=== PATIENT | female | born 1975 | race African-American/Black ===

== ENCOUNTER 2017-08-24 06:11 | Emergency (ER) | payer MEDICAID ==
[~2017-08-24] VITALS: Ht 167.6 cm; Wt 80.0 kg
[~2017-08-24 06:11] MED LIST: BENA20TA3 PO; BENAZEPRIL PO; METF500T6 PO; METFORMIN PO; METO-293 PO; ONDA8TAB6 PO; SIMVASTATIN PO
[2017-08-24] MEDS ORDERED: MORPHINE SULFATE 4 MG/ML CPJ (NOT FOR IM USE) IV STA (06:44)
[2017-08-24] MEDS ORDERED: SODIUM CHLORIDE 0.9% 1,000 ML IV ONE (06:44)
[2017-08-24] MEDS ORDERED: METOCLOPRAMIDE HCL 10MG/2ML VIAL IV ONE (06:45)
[2017-08-24 07:20] LABS: BASOPHILS % 0.7 % (0.0-2.0); EOSINOPHILS % 0.1 % (0.0-5.0); HEMOGLOBIN. 15.3 g/dL (12.0-16.0); LYMPHOCYTES % 14.8 % (20.0-50.0); MEAN CORPUSCULAR HEMOGLOBIN 30.6 pg (28.0-32.0); MEAN CORPUSCULAR VOLUME 88.3 fL (81.0-99.0); MONOCYTES % 5.4 % (2.0-8.0); PLATELET 238 x1000/uL (130-400); RED BLOOD CELL COUNT 4.99 mill/uL (4.2-5.4); RED CELL DISTRIBUTION WIDTH 12.4 % (11.6-14.6)
[2017-08-24 07:30] LABS: INR 1.1; PROTHROMBIN TIME 11.8 sec (9.4-11.6)
[2017-08-24 07:35] LABS: CHLORIDE 100 mEq/L (98-107)
[2017-08-24 07:45] LABS: HCG SCREEN NEGATIVE
[2017-08-24] MEDS ORDERED: ONDANSETRON HCL 4MG/2ML VIAL IV ONE (08:00)
[2017-08-24 09:34] LABS: CLARITY URINE CLEAR (CLEAR); COLOR URINE YELLOW (YELLOW); KETONES URINE 2+ (NEGATIVE); LEUKOCYTE ESTERASE URINE NEGATIVE (NEGATIVE); NITRITE URINE NEGATIVE (NEGATIVE); OCCULT BLOOD URINE NEGATIVE (NEGATIVE); PROTEIN URINE NEGATIVE (NEGATIVE); SPECIFIC GRAVITY URINE 1.008 (1.005-1.030); UROBILINOGEN URINE 0.2 E.U./dL (0.2-1.0)
[2017-08-24 10:23] VITALS: BP 128/84
== END 2017-08-24 10:37 | disposition home or self-care (01) ==
LOC: ER 08:53
DX: E11.43 Type 2 diabetes mellitus with diabetic autonomic (poly)neuropathy (principal); K31.84 Gastroparesis; I10 Essential (primary) hypertension; Z79.84 Long term (current) use of oral hypoglycemic drugs
CPT/HCPCS: 36415; 80053; 81003; 83690; 84703; 85025; 85610; 96361; 96374; 96375; 99285; C1893; J2270; J2405; J2765; J7030; Z7610

== ENCOUNTER 2017-10-11 07:34 | Emergency (ER) | payer MEDICAID ==
[~2017-10-11] VITALS: Ht 167.6 cm; Wt 79.0 kg
[~2017-10-11 07:34] MED LIST changes: +BENA20TA10 PO; -BENA20TA3 PO
[2017-10-11] MEDS ORDERED: SODIUM CHLORIDE 0.9% 1,000 ML IV ONE (09:02)
[2017-10-11] MEDS ORDERED: KETOROLAC 30MG/ML VIAL IV STA (09:02)
[2017-10-11] MEDS ORDERED: ONDANSETRON HCL 4MG/2ML VIAL IV STA (09:02)
[2017-10-11 09:16] LABS: CLARITY URINE CLEAR (CLEAR); COLOR URINE YELLOW (YELLOW); KETONES URINE 2+ (NEGATIVE); LEUKOCYTE ESTERASE URINE NEGATIVE (NEGATIVE); NITRITE URINE NEGATIVE (NEGATIVE); OCCULT BLOOD URINE TRACE (NEGATIVE); PH URINE 5.5 (4.5-8.0); PROTEIN URINE NEGATIVE (NEGATIVE); SPECIFIC GRAVITY URINE 1.015 (1.005-1.030); UROBILINOGEN URINE 0.2 E.U./dL (0.2-1.0)
[2017-10-11 10:11] LABS: CHLORIDE 104 mEq/L (98-107)
[2017-10-11 11:37] LABS: BASOPHILS % 0.6 % (0.0-2.0); HEMATOCRIT. 40.5 % (36.0-48.0); HEMOGLOBIN. 13.7 g/dL (12.0-16.0); LYMPHOCYTES % 9.3 % (20.0-50.0); MEAN CORPUSCULAR HEMOGLOBIN 30.3 pg (28.0-32.0); MEAN CORPUSCULAR VOLUME 89.3 fL (81.0-99.0); MEAN PLATELET VOLUME 9.6 fl (7.4-10.4); MONOCYTES % 3.9 % (2.0-8.0); NEUTROPHILS % 86.2 % (40.0-76.0); PLATELET 206 x1000/uL (130-400); RED BLOOD CELL COUNT 4.54 mill/uL (4.2-5.4); RED CELL DISTRIBUTION WIDTH 12.6 % (11.6-14.6)
[2017-10-11 11:44] LABS: INR 1.1; PROTHROMBIN TIME 10.7 sec (9.1-11.1)
[2017-10-11 12:10] VITALS: BP 133/69
== END 2017-10-11 13:05 | disposition home or self-care (01) ==
LOC: ER 07:34
DX: R10.12 Left upper quadrant pain (principal); R11.2 Nausea with vomiting, unspecified; I10 Essential (primary) hypertension; E11.9 Type 2 diabetes mellitus without complications; Z90.710 Acquired absence of both cervix and uterus; Z98.890 Other specified postprocedural states
CPT/HCPCS: 36415; 74176; 80053; 81003; 81025; 82962; 83690; 85025; 85610; 96361; 96374; 96375; 99285; J1885; J2405; J7030

== ENCOUNTER 2017-11-29 07:37 | Inpatient (IN) | payer MEDICAID, OTHER ==
[~2017-11-29] VITALS: Ht 167.6 cm; Wt 78.5 kg
[~2017-11-29 07:37] MED LIST changes: +METF-414 PO; -METF500T6 PO
[2017-11-29] MEDS ORDERED: PANTOPRAZOLE SODIUM 40 MG/VIAL IV STA (08:15)
[2017-11-29] MEDS ORDERED: SODIUM CHLORIDE 0.9% 1,000 ML IV ONE (08:15)
[2017-11-29] MEDS ORDERED: ONDANSETRON HCL 4MG/2ML INJ IV STA (08:15)
[2017-11-29] MEDS ORDERED: ONDANSETRON 4MG ODT PO ONE (09:00)
[2017-11-29 09:59] LABS: BASOPHILS % 0.7 % (0.0-2.0); EOSINOPHILS % 0.3 % (0.0-5.0); HEMATOCRIT. 44.4 % (36.0-48.0); HEMOGLOBIN. 14.8 g/dL (12.0-16.0); LYMPHOCYTES % 12.2 % (20.0-50.0); MEAN CORPUSCULAR HEMOGLOBIN 30.4 pg (28.0-32.0); MEAN CORPUSCULAR VOLUME 91.2 fL (81.0-99.0); MEAN PLATELET VOLUME 10.4 fl (7.4-10.4); NEUTROPHILS % 82.8 % (40.0-76.0); PLATELET 190 x1000/uL (130-400); RED BLOOD CELL COUNT 4.87 mill/uL (4.2-5.4)
[2017-11-29 10:07] LABS: CHLORIDE 109 mEq/L (98-107)
[2017-11-29 10:12] LABS: ETHANOL BLOOD < 10 mg/dL
[2017-11-29 11:05] LABS: PLATELET ESTIMATE NORMAL
[2017-11-29] MEDS ORDERED: MORPHINE SULFATE 4 MG/ML CPJ (NOT FOR IM USE) IV ONE (11:15)
[2017-11-29 11:39] LABS: CLARITY URINE CLEAR (CLEAR); COLOR URINE YELLOW (YELLOW); KETONES URINE 1+ (NEGATIVE); LEUKOCYTE ESTERASE URINE NEGATIVE (NEGATIVE); NITRITE URINE NEGATIVE (NEGATIVE); OCCULT BLOOD URINE NEGATIVE (NEGATIVE); PH URINE 7.5 (4.5-8.0); PROTEIN URINE NEGATIVE (NEGATIVE); SPECIFIC GRAVITY URINE 1.022 (1.005-1.030); UROBILINOGEN URINE 0.2 E.U./dL (0.2-1.0)
[2017-11-29 12:12] LABS: *AMPHETAMINES SCREEN URINE NEGATIVE (NEGATIVE); *BARBITURATES SCREEN URINE NEGATIVE (NEGATIVE); *BENZODIAZEPINES SCREEN URINE NEGATIVE (NEGATIVE); *COCAINE SCREEN URINE NEGATIVE (NEGATIVE); METHADONE URINE SCREEN NEGATIVE (NEGATIVE); OPIATES URINE SCREEN NEGATIVE (NEGATIVE); PHENCYCLIDINE URINE SCREEN NEGATIVE (NEGATIVE)
[2017-11-29 12:14] LABS: CANNABINOID URINE SCREEN PRESUMTIVE POSITIVE (NEGATIVE)
[2017-11-29] MEDS ORDERED: METOCLOPRAMIDE HCL 10MG/2ML VIAL IV ONE (13:15)
[2017-11-29 16:00] VITALS: BP 139/77
[2017-11-29] MEDS ORDERED: NA PHOS,M-B/NA PHOS,DI-BA ENEMA 118ML PR PRN (17:45)
[2017-11-29] MEDS ORDERED: MAGNESIUM/ALUMINUM HYDROXIDE/SIMETHICONE 30ML UDC PO PRN (17:45)
[2017-11-29] MEDS ORDERED: ACETAMINOPHEN 650MG SUPP PR PRN (17:45)
[2017-11-29] MEDS ORDERED: HYDROCODONE/ACETAMINOPHEN 10/325MG TABLET PO PRN (17:45)
[2017-11-29] MEDS ORDERED: ACETAMINOPHEN 650MG/20.3ML UDC GT PRN (17:45)
[2017-11-29] MEDS ORDERED: ACETAMINOPHEN 325MG TABLET PO PRN (17:45)
[2017-11-29] MEDS ORDERED: DOCUSATE SODIUM 100MG CAPSULE PO PRN (17:45)
[2017-11-29] MEDS ORDERED: HYDROCODONE/ACETAMINOPHEN 5/325MG TABLET PO PRN (17:45)
[2017-11-29] MEDS ORDERED: ONDANSETRON HCL 4MG/2ML INJ IV PRN (17:45)
[2017-11-29] MEDS ORDERED: GUAIFENESIN 200MG/10ML SUGAR FREE UDC PO PRN (17:45)
[2017-11-29] MEDS ORDERED: CLONIDINE 0.1MG TABLET PO PRN (17:45)
[2017-11-29] MEDS: METOCLOPRAMIDE HCL 10MG/2ML VIAL IV SCH ×2 (17:55→23:37)
[2017-11-29] MEDS: FAMOTIDINE 20MG/2ML VIAL IV SCH (17:56)
[2017-11-29] MEDS: ENOXAPARIN 40MG/0.4ML SYR SUBCUT SCH (17:56)
[2017-11-29] MEDS: MORPHINE SULFATE 4 MG/ML CPJ (NOT FOR IM USE) IV PRN ×2 (18:00→23:37)
[2017-11-29 20:00] VITALS: BP 150/74
[2017-11-30] VITALS: BP 136/89
[2017-11-30] MEDS: DEXT 5%/0.45% NACL 1000ML 1,000 ML IV SCH ×2 (00:57→14:00)
[2017-11-30 04:00] VITALS: BP 140/77
[2017-11-30] MEDS: MORPHINE SULFATE 4 MG/ML CPJ (NOT FOR IM USE) IV PRN ×2 (05:26→10:03)
[2017-11-30] MEDS: METOCLOPRAMIDE HCL 10MG/2ML VIAL IV SCH ×2 (05:26→12:08)
[2017-11-30 07:34] LABS: BASOPHILS % 0.6 % (0.0-2.0); HEMATOCRIT. 37.6 % (36.0-48.0); HEMOGLOBIN. 12.5 g/dL (12.0-16.0); LYMPHOCYTES % 11.4 % (20.0-50.0); MEAN CORPUSCULAR VOLUME 90.3 fL (81.0-99.0); MEAN PLATELET VOLUME 9.8 fl (7.4-10.4); MONOCYTES % 7.6 % (2.0-8.0); NEUTROPHILS % 80.4 % (40.0-76.0); PLATELET 189 x1000/uL (130-400); RED BLOOD CELL COUNT 4.16 mill/uL (4.2-5.4); RED CELL DISTRIBUTION WIDTH 12.6 % (11.6-14.6)
[2017-11-30 08:00] VITALS: BP 122/78
[2017-11-30 08:15] LABS: CHLORIDE 105 mEq/L (98-107)
[2017-11-30 08:24] LABS: HDL CHOLESTEROL 41 mg/dL (40-59); LDL CHOLESTEROL 103 mg/dL (5-100)
[2017-11-30] MEDS: ENOXAPARIN 40MG/0.4ML SYR SUBCUT SCH (08:52)
[2017-11-30] MEDS: FAMOTIDINE 20MG/2ML VIAL IV SCH (08:52)
[2017-11-30] MEDS ORDERED: DEXTROSE 50% WATER 50ML SYRINGE IV PRN (10:30)
[2017-11-30 12:00] VITALS: BP 132/57
[2017-11-30] MEDS ORDERED: BLOOD SUGAR DIAGNOSTIC STRIP TEST SCH (12:20)
[2017-11-30] MEDS ORDERED: INSULIN LISPRO 100 UNITS/ML SUBCUT SCH (12:50)
[2017-11-30 14:12] VITALS: BP 132/57
[2017-11-30 16:00] VITALS: BP 124/65
== END 2017-11-30 16:36 | disposition home or self-care (01) | DRG 48 ==
LOC: ER 07:37 → 6EST 14:22 → ENRESERV 14:32
PROVIDERS: ADMIT Family Medicine; ATTEND Family Medicine
DX: E11.43 Type 2 diabetes mellitus with diabetic autonomic (poly)neuropathy (principal); K31.84 Gastroparesis; E78.5 Hyperlipidemia, unspecified; E86.0 Dehydration; F12.90 Cannabis use, unspecified, uncomplicated; I10 Essential (primary) hypertension; Z83.3 Family history of diabetes mellitus; Z90.710 Acquired absence of both cervix and uterus; Z98.891 History of uterine scar from previous surgery; Z79.899 Other long term (current) drug therapy
CPT/HCPCS: 36415; 80061; 80305; 82962; 96361; 96374; 96375; 99285; C1893; C9113; G0482; J1650; J2270; J2405; J2765; J3490; J7030; Q0162

== ENCOUNTER 2017-12-26 09:08 | Emergency (ER) | payer OTHER ==
[~2017-12-26] VITALS: Ht 167.6 cm; Wt 79.0 kg
[2017-12-26] MEDS ORDERED: SODIUM CHLORIDE 0.9% 1,000 ML IV ONE (10:37)
[2017-12-26] MEDS ORDERED: ONDANSETRON HCL 4MG/2ML INJ IV STA (10:37)
[2017-12-26] MEDS ORDERED: KETOROLAC 30MG/ML VIAL IV STA (10:37)
[2017-12-26 11:18] LABS: BASOPHILS % 0.6 % (0.0-2.0); EOSINOPHILS % 0.2 % (0.0-5.0); HEMATOCRIT. 43.9 % (36.0-48.0); HEMOGLOBIN. 14.7 g/dL (12.0-16.0); LYMPHOCYTES % 15.1 % (20.0-50.0); MEAN CORPUSCULAR HEMOGLOBIN 30.4 pg (28.0-32.0); MEAN CORPUSCULAR VOLUME 91.1 fL (81.0-99.0); MEAN PLATELET VOLUME 9.6 fl (7.4-10.4); MONOCYTES % 3.8 % (2.0-8.0); NEUTROPHILS % 80.3 % (40.0-76.0); PLATELET 228 x1000/uL (130-400); RED BLOOD CELL COUNT 4.81 mill/uL (4.2-5.4); RED CELL DISTRIBUTION WIDTH 12.8 % (11.6-14.6)
[2017-12-26 11:28] LABS: CHLORIDE 105 mEq/L (98-107)
[2017-12-26 11:47] LABS: CLARITY URINE CLEAR (CLEAR); COLOR URINE YELLOW (YELLOW); KETONES URINE NEGATIVE (NEGATIVE); LEUKOCYTE ESTERASE URINE NEGATIVE (NEGATIVE); NITRITE URINE NEGATIVE (NEGATIVE); OCCULT BLOOD URINE NEGATIVE (NEGATIVE); PROTEIN URINE NEGATIVE (NEGATIVE); SPECIFIC GRAVITY URINE 1.019 (1.005-1.030); UROBILINOGEN URINE 0.2 E.U./dL (0.2-1.0)
[2017-12-26] MEDS ORDERED: MORPHINE SULFATE 4 MG/ML CPJ (NOT FOR IM USE) IV ONE (12:00)
[2017-12-26 13:10] VITALS: BP 124/76
== END 2017-12-26 13:12 | disposition home or self-care (01) ==
LOC: ER 09:42
DX: R10.33 Periumbilical pain (principal); R11.2 Nausea with vomiting, unspecified; I10 Essential (primary) hypertension; E11.9 Type 2 diabetes mellitus without complications; F12.10 Cannabis abuse, uncomplicated; Z98.890 Other specified postprocedural states; Z90.710 Acquired absence of both cervix and uterus; Z79.899 Other long term (current) drug therapy
CPT/HCPCS: 36415; 74176; 80053; 81003; 81025; 82962; 83690; 85025; 85610; 96361; 96374; 96375; 99285; J1885; J2270; J2405; J7030

== ENCOUNTER 2018-02-20 07:11 | Inpatient (IN) | payer OTHER ==
[~2018-02-20] VITALS: Ht 165.1 cm; Wt 81.6 kg
[2018-02-20] MEDS ORDERED: SODIUM CHLORIDE 0.9% 1,000 ML IV ONE (07:46)
[2018-02-20] MEDS ORDERED: METOCLOPRAMIDE HCL 10MG/2ML VIAL IV STA (07:46)
[2018-02-20] MEDS ORDERED: MORPHINE SULFATE 4 MG/ML CPJ (NOT FOR IM USE) IV ONE (08:00)
[2018-02-20 09:13] LABS: BASOPHILS % 0.4 % (0.0-2.0); EOSINOPHILS % 0.3 % (0.0-5.0); HEMATOCRIT. 41.6 % (36.0-48.0); HEMOGLOBIN. 13.9 g/dL (12.0-16.0); LYMPHOCYTES % 10.3 % (20.0-50.0); MEAN CORPUSCULAR HEMOGLOBIN 30.6 pg (28.0-32.0); MEAN CORPUSCULAR VOLUME 91.5 fL (81.0-99.0); MONOCYTES % 2.2 % (2.0-8.0); NEUTROPHILS % 86.8 % (40.0-76.0); RED BLOOD CELL COUNT 4.55 mill/uL (4.2-5.4); RED CELL DISTRIBUTION WIDTH 13.2 % (11.6-14.6)
[2018-02-20 09:16] LABS: CHLORIDE 109 mEq/L (98-107)
[2018-02-20 09:25] LABS: BETA HYDROXYBUTYRATE 0.1 mMol/L (0.0-0.3)
[2018-02-20] MEDS ORDERED: MORPHINE SULFATE 10 MG/ML CPJ IV NR (09:30)
[2018-02-20] MEDS ORDERED: ONDANSETRON HCL 4MG/2ML INJ IV ONE ×2 (09:45→11:15)
[2018-02-20 10:07] LABS: PLATELET 159 x1000/uL (130-400)
[2018-02-20 10:55] LABS: CLARITY URINE CLOUDY (CLEAR); COLOR URINE YELLOW (YELLOW); KETONES URINE NEGATIVE (NEGATIVE); LEUKOCYTE ESTERASE URINE NEGATIVE (NEGATIVE); NITRITE URINE NEGATIVE (NEGATIVE); OCCULT BLOOD URINE TRACE (NEGATIVE); PROTEIN URINE NEGATIVE (NEGATIVE); SPECIFIC GRAVITY URINE 1.023 (1.005-1.030); UROBILINOGEN URINE 0.2 E.U./dL (0.2-1.0)
[2018-02-20 12:50] LABS: *AMPHETAMINES SCREEN URINE NEGATIVE (NEGATIVE); *BARBITURATES SCREEN URINE NEGATIVE (NEGATIVE); *BENZODIAZEPINES SCREEN URINE NEGATIVE (NEGATIVE); *COCAINE SCREEN URINE NEGATIVE (NEGATIVE); METHADONE URINE SCREEN NEGATIVE (NEGATIVE); OPIATES URINE SCREEN NEGATIVE (NEGATIVE); PHENCYCLIDINE URINE SCREEN NEGATIVE (NEGATIVE)
[2018-02-20 12:55] LABS: CANNABINOID URINE SCREEN PRESUMTIVE POSITIVE (NEGATIVE)
[2018-02-20] MEDS ORDERED: KETOROLAC 15MG/ML VIAL IV ONE (13:45)
[2018-02-20 17:37] VITALS: BP 139/89
[2018-02-20] MEDS ORDERED: SODIUM CHLORIDE 0.9% 1,000 ML IV SCH (19:30)
[2018-02-20] MEDS ORDERED: DEXTROSE 50% WATER 50ML SYRINGE IV PRN (19:30)
[2018-02-20] MEDS ORDERED: METOCLOPRAMIDE HCL 10MG/2ML VIAL IV PRN (19:30)
[2018-02-20] MEDS ORDERED: ZOLPIDEM TARTRATE 5MG TABLET PO PRN (19:45)
[2018-02-20] MEDS ORDERED: ACETAMINOPHEN 325MG TABLET PO PRN (19:45)
[2018-02-20 20:00] VITALS: BP 147/88
[2018-02-20] MEDS: INSULIN LISPRO 100 UNITS/ML SUBCUT SCH (20:34)
[2018-02-20] MEDS: BLOOD SUGAR DIAGNOSTIC STRIP TEST SCH (21:00)
[2018-02-21] VITALS: BP 149/81
[2018-02-21] MEDS ORDERED: KETOROLAC 10MG TABLET PO ONE (00:30)
[2018-02-21] MEDS ORDERED: ONDANSETRON HCL 4MG/2ML INJ IV PRN (00:30)
[2018-02-21] MEDS ORDERED: MAGNESIUM/ALUMINUM HYDROXIDE/SIMETHICONE 30ML UDC PO PRN (00:30)
[2018-02-21 04:00] VITALS: BP 124/78
[2018-02-21] MEDS: BLOOD SUGAR DIAGNOSTIC STRIP TEST SCH (07:20)
[2018-02-21] MEDS: INSULIN LISPRO 100 UNITS/ML SUBCUT SCH (07:50)
[2018-02-21] MEDS ORDERED: METFORMIN HCL 500MG TABLET PO SCH (07:50)
[2018-02-21 07:54] LABS: BASOPHILS % 0.3 % (0.0-2.0); HEMATOCRIT. 40.2 % (36.0-48.0); HEMOGLOBIN. 13.5 g/dL (12.0-16.0); LYMPHOCYTES % 7.6 % (20.0-50.0); MEAN CORPUSCULAR HEMOGLOBIN 30.3 pg (28.0-32.0); MEAN CORPUSCULAR VOLUME 90.2 fL (81.0-99.0); MEAN PLATELET VOLUME 9.5 fl (7.4-10.4); MONOCYTES % 4.2 % (2.0-8.0); NEUTROPHILS % 87.9 % (40.0-76.0); PLATELET 226 x1000/uL (130-400); RED BLOOD CELL COUNT 4.46 mill/uL (4.2-5.4); RED CELL DISTRIBUTION WIDTH 13.1 % (11.6-14.6)
[2018-02-21 08:00] VITALS: BP 126/69
[2018-02-21 08:24] LABS: CHLORIDE 100 mEq/L (98-107)
[2018-02-21] MEDS ORDERED: FAMOTIDINE 20MG TABLET PO SCH (09:00)
[2018-02-21] MEDS ORDERED: KETOROLAC 30MG/ML VIAL IV PRN (09:15)
[2018-02-21] MEDS ORDERED: METRONIDAZOLE 500 MG PREMIX 100 ML IV SCH (10:30)
[2018-02-21] MEDS ORDERED: LEVOFLOXACIN 500MG PREMIX 100 ML IV SCH (11:00)
[2018-02-21] MEDS ORDERED: METOCLOPRAMIDE HCL 10MG/2ML VIAL IV SCH (11:30)
[2018-02-21 12:00] VITALS: BP 117/84
== END 2018-02-21 13:40 | disposition home or self-care (01) | DRG 48 ==
LOC: ER 07:48 → ENRESERV 14:23 → EDBEDREQ 15:30 → 6EST 16:15
PROVIDERS: ADMIT Family Medicine Adult Medicine; ATTEND Family Medicine Adult Medicine
DX: E11.43 Type 2 diabetes mellitus with diabetic autonomic (poly)neuropathy (principal); K31.84 Gastroparesis; D72.829 Elevated white blood cell count, unspecified; T40.7X5A Adverse effect of cannabis (derivatives), initial encounter; F12.90 Cannabis use, unspecified, uncomplicated; I10 Essential (primary) hypertension; Z83.3 Family history of diabetes mellitus; Z90.710 Acquired absence of both cervix and uterus; Z98.891 History of uterine scar from previous surgery; Y92.89 Other specified places as the place of occurrence of the external cause; Z79.899 Other long term (current) drug therapy
CPT/HCPCS: 36415; 74176; 76705; 80048; 80305; 82010; 82962; 83036; 96374; 99285; J1815; J1885; J1956; J2270; J2405; J2765; J3490; J7030

== ENCOUNTER 2018-08-22 07:31 | Inpatient (IN) | payer MEDICAID, OTHER ==
[~2018-08-22] VITALS: Ht 167.6 cm; Wt 79.4 kg
[2018-08-22] MEDS ORDERED: MORPHINE SULFATE 4 MG/ML CPJ (NOT FOR IM USE) IV STA ×2 (08:58→15:40)
[2018-08-22] MEDS ORDERED: ONDANSETRON HCL 4MG/2ML INJ IV STA (08:58)
[2018-08-22] MEDS ORDERED: SODIUM CHLORIDE 0.9% 1,000 ML IV ONE (08:58)
[2018-08-22 09:29] LABS: BASOPHILS % 0.9 % (0.0-2.0); EOSINOPHILS % 0.1 % (0.0-5.0); HEMATOCRIT. 42.4 % (36.0-48.0); HEMOGLOBIN. 14.3 g/dL (12.0-16.0); LYMPHOCYTES % 11.1 % (20.0-50.0); MEAN CORPUSCULAR HEMOGLOBIN 30.8 pg (28.0-32.0); MEAN CORPUSCULAR VOLUME 91.1 fL (81.0-99.0); MEAN PLATELET VOLUME 9.5 fl (7.4-10.4); MONOCYTES % 2.6 % (2.0-8.0); NEUTROPHILS % 85.3 % (40.0-76.0); PLATELET 222 x1000/uL (130-400); RED BLOOD CELL COUNT 4.65 mill/uL (4.2-5.4); RED CELL DISTRIBUTION WIDTH 12.9 % (11.6-14.6)
[2018-08-22 09:40] LABS: HCG SCREEN NEGATIVE
[2018-08-22 09:42] LABS: CHLORIDE 110 mEq/L (98-107)
[2018-08-22 10:40] LABS: CLARITY URINE TURBID (CLEAR); COLOR URINE YELLOW (YELLOW); KETONES URINE TRACE (NEGATIVE); LEUKOCYTE ESTERASE URINE NEGATIVE (NEGATIVE); NITRITE URINE NEGATIVE (NEGATIVE); OCCULT BLOOD URINE NEGATIVE (NEGATIVE); PROTEIN URINE NEGATIVE (NEGATIVE); SPECIFIC GRAVITY URINE 1.027 (1.005-1.030); UROBILINOGEN URINE 0.2 E.U./dL (0.2-1.0)
[2018-08-22] MEDS ORDERED: METOCLOPRAMIDE HCL 10MG/2ML VIAL IV ONE (11:15)
[2018-08-22] MEDS ORDERED: ONDANSETRON HCL 4MG/2ML INJ IV ONE (15:00)
[2018-08-22] MEDS ORDERED: MAGNESIUM/ALUMINUM HYDROXIDE/SIMETHICONE 30ML UDC PO PRN (18:30)
[2018-08-22] MEDS ORDERED: CLONIDINE 0.1MG TABLET PO PRN (18:30)
[2018-08-22] MEDS ORDERED: DIPHENHYDRAMINE 50MG/ML VIAL IV PRN (18:30)
[2018-08-22] MEDS ORDERED: IPRATROPIUM/ALBUTEROL 0.5-3(2.5)MG/3ML NEB INH PRN (18:30)
[2018-08-22] MEDS ORDERED: HYDROCODONE/ACETAMINOPHEN 5/325MG TABLET PO PRN (18:30)
[2018-08-22] MEDS ORDERED: GUAIFENESIN 200MG/10ML SUGAR FREE UDC PO PRN (18:30)
[2018-08-22] MEDS ORDERED: ACETAMINOPHEN 325MG TABLET PO PRN (18:30)
[2018-08-22] MEDS ORDERED: DOCUSATE SODIUM 100MG CAPSULE PO PRN (18:30)
[2018-08-22] MEDS ORDERED: NA PHOS,M-B/NA PHOS,DI-BA ENEMA 118ML PR PRN (18:30)
[2018-08-22] MEDS ORDERED: ONDANSETRON HCL 4MG/2ML INJ IV PRN (18:30)
[2018-08-22] MEDS ORDERED: ACETAMINOPHEN 650MG SUPP PR PRN (18:30)
[2018-08-22] MEDS ORDERED: ACETAMINOPHEN 650MG/20.3ML UDC GT PRN (18:30)
[2018-08-22 18:51] VITALS: BP 154/81
[2018-08-22] MEDS ORDERED: ENOXAPARIN 40MG/0.4ML SYR SUBCUT SCH (19:00)
[2018-08-22 20:00] VITALS: BP 147/70
[2018-08-22] MEDS: FAMOTIDINE 20MG/2ML VIAL IV SCH (20:20)
[2018-08-22] MEDS: MORPHINE SULFATE 2 MG/ML CPJ (NOT FOR IM USE) IV PRN (20:31)
[2018-08-22] MEDS: SODIUM CHLORIDE 0.9% INJ 3ML FLUSH IVF SCH (22:43)
[2018-08-23] VITALS: BP 118/69
[2018-08-23] MEDS: METOCLOPRAMIDE HCL 10MG/2ML VIAL IV SCH ×4 (00:07→16:58)
[2018-08-23] MEDS: DEXT 5%/0.45% NACL 1000ML 1,000 ML IV SCH ×3 (00:08→08:01)
[2018-08-23] MEDS: MORPHINE SULFATE 2 MG/ML CPJ (NOT FOR IM USE) IV PRN (00:50)
[2018-08-23 04:00] VITALS: BP 110/47
[2018-08-23] MEDS ORDERED: DEXTROSE 50% WATER 50ML SYRINGE IV PRN (04:45)
[2018-08-23] MEDS: SODIUM CHLORIDE 0.9% INJ 3ML FLUSH IVF SCH ×2 (06:16→12:54)
[2018-08-23] MEDS: BLOOD SUGAR DIAGNOSTIC STRIP TEST SCH ×3 (06:48→17:55)
[2018-08-23 07:19] LABS: BASOPHILS % 0.9 % (0.0-2.0); EOSINOPHILS % 0.1 % (0.0-5.0); HEMATOCRIT. 40.3 % (36.0-48.0); HEMOGLOBIN. 13.6 g/dL (12.0-16.0); LYMPHOCYTES % 13.9 % (20.0-50.0); MEAN CORPUSCULAR HEMOGLOBIN 30.7 pg (28.0-32.0); MEAN CORPUSCULAR VOLUME 90.9 fL (81.0-99.0); MEAN PLATELET VOLUME 9.2 fl (7.4-10.4); MONOCYTES % 7.8 % (2.0-8.0); NEUTROPHILS % 77.3 % (40.0-76.0); PLATELET 197 x1000/uL (130-400); RED BLOOD CELL COUNT 4.43 mill/uL (4.2-5.4); RED CELL DISTRIBUTION WIDTH 12.7 % (11.6-14.6)
[2018-08-23] MEDS: INSULIN LISPRO 100 UNITS/ML SUBCUT SCH ×3 (07:50→17:50)
[2018-08-23] MEDS: FAMOTIDINE 20MG/2ML VIAL IV SCH ×2 (07:59→16:58)
[2018-08-23 08:00] VITALS: BP 120/70
[2018-08-23 10:29] LABS: CHLORIDE 108 mEq/L (98-107)
[2018-08-23 10:31] LABS: LDL CHOLESTEROL 128 mg/dL (5-100)
[2018-08-23 10:33] LABS: HDL CHOLESTEROL 44 mg/dL (40-59)
[2018-08-23 12:00] VITALS: BP 139/77
[2018-08-23 16:00] VITALS: BP 139/83
[2018-08-23] MEDS ORDERED: LACTULOSE 20G/30ML UDC PO NR (16:45)
[2018-08-23 17:29] VITALS: BP 139/83
== END 2018-08-23 18:15 | disposition home or self-care (01) | DRG 48 ==
LOC: ER 07:36 → 6EST 15:02 → EDBEDREQ 15:12 → ENRESERV 16:34
PROVIDERS: ADMIT Family Medicine; ATTEND Family Medicine
DX: E11.43 Type 2 diabetes mellitus with diabetic autonomic (poly)neuropathy (principal); E87.8 Other disorders of electrolyte and fluid balance, not elsewhere classified; K31.84 Gastroparesis; I10 Essential (primary) hypertension; Z83.3 Family history of diabetes mellitus; Z90.710 Acquired absence of both cervix and uterus; Z98.891 History of uterine scar from previous surgery; Z79.899 Other long term (current) drug therapy
CPT/HCPCS: 36415; 80061; 82962; 84703; 96374; 99285; J1650; J2270; J2405; J2765; J3490; J7030

== ENCOUNTER 2018-12-09 06:27 | Emergency (ER) | payer MEDICAID ==
[~2018-12-09] VITALS: Ht 167.6 cm; Wt 82.0 kg
[2018-12-09] MEDS ORDERED: ONDANSETRON HCL 4MG/2ML INJ IV STA (08:18)
[2018-12-09] MEDS ORDERED: SODIUM CHLORIDE 0.9% 1,000 ML IV ONE (08:18)
[2018-12-09 08:57] LABS: CLARITY URINE CLEAR (CLEAR); COLOR URINE YELLOW (YELLOW); KETONES URINE NEGATIVE (NEGATIVE); LEUKOCYTE ESTERASE URINE NEGATIVE (NEGATIVE); NITRITE URINE NEGATIVE (NEGATIVE); OCCULT BLOOD URINE NEGATIVE (NEGATIVE); PH URINE 6.5 (4.5-8.0); PROTEIN URINE NEGATIVE (NEGATIVE); SPECIFIC GRAVITY URINE 1.021 (1.005-1.030)
[2018-12-09 09:26] LABS: BASOPHILS % 1.2 % (0.0-2.0); EOSINOPHILS % 0.4 % (0.0-5.0); HEMOGLOBIN. 14.1 g/dL (12.0-16.0); LYMPHOCYTES % 22.6 % (20.0-50.0); MEAN CORPUSCULAR HEMOGLOBIN 30.1 pg (28.0-32.0); MEAN CORPUSCULAR VOLUME 89.3 fL (81.0-99.0); MEAN PLATELET VOLUME 8.9 fl (7.4-10.4); MONOCYTES % 5.9 % (2.0-8.0); NEUTROPHILS % 69.9 % (40.0-76.0); PLATELET 210 x1000/uL (130-400); RED CELL DISTRIBUTION WIDTH 12.7 % (11.6-14.6)
[2018-12-09 09:33] LABS: CHLORIDE 106 mEq/L (98-107)
[2018-12-09 09:37] LABS: HCG SCREEN NEGATIVE
[2018-12-09 10:20] VITALS: BP 130/80
== END 2018-12-09 10:21 | disposition home or self-care (01) ==
LOC: ER 08:51
DX: R10.9 Unspecified abdominal pain (principal); R11.2 Nausea with vomiting, unspecified; E11.9 Type 2 diabetes mellitus without complications; I10 Essential (primary) hypertension; Z90.710 Acquired absence of both cervix and uterus; Z98.890 Other specified postprocedural states; Z79.899 Other long term (current) drug therapy
CPT/HCPCS: 36415; 80053; 81003; 81025; 83690; 84703; 85025; 96361; 96374; 99283; J2405; J7030

== ENCOUNTER 2019-03-12 07:19 | Emergency (ER) | payer MEDICAID, OTHER ==
[~2019-03-12] VITALS: Ht 167.6 cm; Wt 82.0 kg
[2019-03-12] MEDS ORDERED: LORAZEPAM 1MG TABLET PO ONE (08:00)
[2019-03-12 08:22] LABS: BG BASE EXCESS 2.2 mmol/L (-2.0-2.0); BG DEOXYHEMOGLOBIN 1.7 % (0.0-5.0); BG FRACTION INSPIRED OXYGEN 21; BG HCO3 ACT 22.6 mmol/L (22.0-26.0); BG METHEMOGLOBIN 0.3 % (0.0-1.5); BG OXYGEN SATURATION 98.3 % (92.0-98.5); BG PCO2 25.3 mmHg (35.0-45.0); BG PH 7.569 (7.350-7.450); BG PO2 104.2 mmHg (75.0-100.0); BG SAMPLE SITE RIGHT RADIAL; BG TOTAL HEMOGLOBIN 15.2 g/dL (12.0-18.0); BG VENT MODE ROOM AIR
[2019-03-12 09:19] VITALS: BP 130/68
== END 2019-03-12 09:22 | disposition home or self-care (01) ==
LOC: ER 07:19
DX: R06.4 Hyperventilation (principal); B34.9 Viral infection, unspecified; R07.89 Other chest pain; I10 Essential (primary) hypertension; F17.210 Nicotine dependence, cigarettes, uncomplicated; Z71.6 Tobacco abuse counseling; F12.90 Cannabis use, unspecified, uncomplicated
CPT/HCPCS: 36600; 82375; 82805; 87804; 93005; 99284; 99406

== ENCOUNTER 2019-11-05 21:27 | Emergency (ER) | payer MEDICAID ==
[~2019-11-05] VITALS: Ht 167.6 cm; Wt 83.0 kg
[2019-11-05] MEDS ORDERED: SODIUM CHLORIDE 0.9% 1,000 ML IV ONE (22:16)
[2019-11-05] MEDS ORDERED: METOCLOPRAMIDE HCL 10MG/2ML VIAL IV STA (22:16)
[2019-11-05] MEDS ORDERED: KETOROLAC 15MG/ML VIAL IV ONE (22:30)
[2019-11-05 22:51] LABS: HEMATOCRIT. 40.4 % (36.0-48.0); HEMOGLOBIN. 13.7 g/dL (12.0-16.0); MEAN CORPUSCULAR HEMOGLOBIN 30.1 pg (28.0-32.0); MEAN CORPUSCULAR VOLUME 88.3 fL (81.0-99.0); MEAN PLATELET VOLUME 8.9 fl (7.4-10.4); PLATELET 211 x1000/uL (130-400); RED BLOOD CELL COUNT 4.57 mill/uL (4.2-5.4); RED CELL DISTRIBUTION WIDTH 12.9 % (11.6-14.6)
[2019-11-05 22:58] LABS: CHLORIDE 102 mEq/L (98-107)
[2019-11-05 23:03] LABS: ETHANOL BLOOD < 10 mg/dL
[2019-11-05 23:05] LABS: BETA HYDROXYBUTYRATE 0.6 mMol/L (0.0-0.3)
[2019-11-05 23:09] LABS: PLATELET ESTIMATE NORMAL
[2019-11-05 23:11] LABS: CLARITY URINE CLEAR (CLEAR); COLOR URINE YELLOW (YELLOW); KETONES URINE 4+ (NEGATIVE); LEUKOCYTE ESTERASE URINE NEGATIVE (NEGATIVE); NITRITE URINE NEGATIVE (NEGATIVE); OCCULT BLOOD URINE TRACE (NEGATIVE); PH URINE 5.5 (4.5-8.0); PROTEIN URINE 1+ (NEGATIVE)
[2019-11-05 23:30] LABS: *AMPHETAMINES SCREEN URINE NEGATIVE (NEGATIVE); *BARBITURATES SCREEN URINE NEGATIVE (NEGATIVE); *BENZODIAZEPINES SCREEN URINE NEGATIVE (NEGATIVE); *COCAINE SCREEN URINE NEGATIVE (NEGATIVE); METHADONE URINE SCREEN NEGATIVE (NEGATIVE); OPIATES URINE SCREEN NEGATIVE (NEGATIVE)
[2019-11-05 23:31] LABS: PHENCYCLIDINE URINE SCREEN NEGATIVE (NEGATIVE)
[2019-11-05 23:34] LABS: CANNABINOID URINE SCREEN PRESUMTIVE POSITIVE (NEGATIVE)
[2019-11-05] MEDS ORDERED: SODIUM CHLORIDE 0.9% 1,000 ML IV NR (23:45)
[2019-11-06] MEDS ORDERED: HALOPERIDOL LACTATE 5MG/ML VIAL IM ONE (02:00)
[2019-11-06] MEDS ORDERED: METOCLOPRAMIDE HCL 10MG/2ML VIAL IV ONE (02:00)
[2019-11-06 04:00] VITALS: BP 141/85
== END 2019-11-06 04:27 | disposition home or self-care (01) ==
LOC: ER 21:27
DX: R11.2 Nausea with vomiting, unspecified (principal); E11.43 Type 2 diabetes mellitus with diabetic autonomic (poly)neuropathy; K31.84 Gastroparesis; I10 Essential (primary) hypertension; F12.10 Cannabis abuse, uncomplicated; Z79.899 Other long term (current) drug therapy
CPT/HCPCS: 36415; 80053; 80305; 80320; 81003; 81025; 82010; 82962; 83690; 85025; 93005; 96361; 96372; 96374; 96375; 96376; 99285; J1630; J1885; J2765; J7030; G0480

== ENCOUNTER 2021-02-03 07:20 | Emergency (ER) | payer MEDICAID, OTHER ==
[~2021-02-03] VITALS: Ht 167.6 cm; Wt 83.0 kg
[~2021-02-03 07:20] MED LIST changes: +AMLO5TAB88 PO; -BENA20TA10 PO; -BENAZEPRIL PO; -METFORMIN PO
[2021-02-03] MEDS ORDERED: MORPHINE SULFATE 4 MG/ML CPJ (NOT FOR IM USE) IV STA (07:41)
[2021-02-03] MEDS ORDERED: FAMOTIDINE 20MG/2ML VIAL IV STA (07:41)
[2021-02-03] MEDS ORDERED: METOCLOPRAMIDE HCL 10MG/2ML VIAL IV ONE (07:45)
[2021-02-03] MEDS ORDERED: SODIUM CHLORIDE 0.9% 1,000 ML IV ONE (07:45)
[2021-02-03 08:50] LABS: BASOPHILS % 0.5 % (0.0-2.0); HEMATOCRIT. 45.3 % (36.0-48.0); HEMOGLOBIN. 15.3 g/dL (12.0-16.0); LYMPHOCYTES % 8.8 % (20.0-50.0); MEAN CORPUSCULAR HEMOGLOBIN 29.7 pg (28.0-32.0); MEAN CORPUSCULAR VOLUME 87.9 fL (81.0-99.0); MEAN PLATELET VOLUME 9.2 fl (7.4-10.4); MONOCYTES % 4.9 % (2.0-8.0); NEUTROPHILS % 85.8 % (40.0-76.0); PLATELET 237 x1000/uL (130-400); RED BLOOD CELL COUNT 5.15 mill/uL (4.2-5.4)
[2021-02-03 08:55] LABS: CHLORIDE 104 mEq/L (98-107)
[2021-02-03] MEDS ORDERED: KETOROLAC 30MG/ML VIAL IV ONE (09:30)
[2021-02-03] MEDS ORDERED: ONDA4TAB5 PO (10:12)
[2021-02-03] MEDS ORDERED: TOPUD PO (10:12)
[2021-02-03 10:26] LABS: CLARITY URINE CLEAR (CLEAR); COLOR URINE YELLOW (YELLOW); KETONES URINE 3+ (NEGATIVE); LEUKOCYTE ESTERASE URINE NEGATIVE (NEGATIVE); NITRITE URINE NEGATIVE (NEGATIVE); OCCULT BLOOD URINE TRACE (NEGATIVE); PROTEIN URINE NEGATIVE (NEGATIVE); SPECIFIC GRAVITY URINE 1.016 (1.005-1.030); UROBILINOGEN URINE 0.2 E.U./dL (0.2-1.0)
[2021-02-03 10:45] VITALS: BP 119/62
== END 2021-02-03 10:47 | disposition home or self-care (01) ==
LOC: ER 07:20
DX: E11.43 Type 2 diabetes mellitus with diabetic autonomic (poly)neuropathy (principal); K31.84 Gastroparesis; E78.00 Pure hypercholesterolemia, unspecified; I10 Essential (primary) hypertension; Z98.890 Other specified postprocedural states; Z90.710 Acquired absence of both cervix and uterus; Z79.899 Other long term (current) drug therapy
CPT/HCPCS: 36415; 80053; 81003; 83690; 85025; 93005; 96361; 96374; 96375; 99284; J1885; J2270; J2765; J3490; J7030

== ENCOUNTER 2021-04-28 06:50 | Emergency (ER) | payer MEDICAID, OTHER ==
[~2021-04-28] VITALS: Ht 165.1 cm; Wt 87.0 kg
[~2021-04-28 06:50] MED LIST changes: +ONDA4TAB5 PO; +TOPUD PO
[2021-04-28] MEDS ORDERED: ONDANSETRON HCL 4MG/2ML INJ IV STA (07:17)
[2021-04-28] MEDS ORDERED: KETOROLAC 30MG/ML VIAL IV STA (07:17)
[2021-04-28] MEDS ORDERED: MAGNESIUM/ALUMINUM HYDROXIDE/SIMETHICONE 30ML UDC PO STA (07:17)
[2021-04-28] MEDS ORDERED: SODIUM CHLORIDE 0.9% 1,000 ML IV ONE (07:30)
[2021-04-28 07:42] LABS: BASOPHILS % 0.7 % (0.0-2.0); EOSINOPHILS % 0.4 % (0.0-5.0); HEMOGLOBIN. 14.3 g/dL (12.0-16.0); MEAN CORPUSCULAR HEMOGLOBIN 29.3 pg (28.0-32.0); MEAN CORPUSCULAR VOLUME 87.8 fL (81.0-99.0); MEAN PLATELET VOLUME 9.1 fl (7.4-10.4); MONOCYTES % 6.6 % (2.0-8.0); NEUTROPHILS % 72.3 % (40.0-76.0); PLATELET 219 x1000/uL (130-400)
[2021-04-28 07:43] LABS: CHLORIDE 110 mEq/L (98-107)
[2021-04-28 07:45] LABS: HCG SCREEN NEGATIVE
[2021-04-28 08:23] LABS: CLARITY URINE CLOUDY (CLEAR); COLOR URINE YELLOW (YELLOW); KETONES URINE TRACE (NEGATIVE); LEUKOCYTE ESTERASE URINE NEGATIVE (NEGATIVE); NITRITE URINE NEGATIVE (NEGATIVE); OCCULT BLOOD URINE TRACE (NEGATIVE); PROTEIN URINE TRACE (NEGATIVE); SPECIFIC GRAVITY URINE 1.024 (1.005-1.030); UROBILINOGEN URINE 0.2 E.U./dL (0.2-1.0)
[2021-04-28] MEDS ORDERED: ONDANSETRON HCL 4MG/2ML INJ IV ONE (08:45)
[2021-04-28] MEDS ORDERED: ONDA4TAB5 MT (09:29)
[2021-04-28] MEDS ORDERED: METOCLOPRAMIDE HCL 10MG/2ML VIAL IV ONE (09:30)
[2021-04-28 10:16] VITALS: BP 128/74
== END 2021-04-28 10:18 | disposition home or self-care (01) ==
LOC: ER 06:50
DX: K52.9 Noninfective gastroenteritis and colitis, unspecified (principal); I10 Essential (primary) hypertension; E11.9 Type 2 diabetes mellitus without complications; E78.00 Pure hypercholesterolemia, unspecified; Z98.890 Other specified postprocedural states
CPT/HCPCS: 36415; 74176; 80053; 81003; 83690; 84703; 85025; 96361; 96374; 96375; 96376; 99284; J1885; J2405; J2765; J7030

== ENCOUNTER 2021-06-13 07:19 | Emergency (ER) | payer MEDICAID ==
[~2021-06-13] VITALS: Ht 167.6 cm; Wt 87.0 kg
[~2021-06-13 07:19] MED LIST changes: +ONDA4TAB5 MT
[2021-06-13] MEDS ORDERED: KETOROLAC 30MG/ML VIAL IV STA (08:19)
[2021-06-13] MEDS ORDERED: ONDANSETRON HCL 4MG/2ML INJ IV STA (08:19)
[2021-06-13] MEDS ORDERED: SODIUM CHLORIDE 0.9% 1,000 ML IV ONE (08:30)
[2021-06-13 08:38] VITALS: BP 145/64
[2021-06-13 08:39] LABS: HEMATOCRIT. 42.5 % (36.0-48.0); HEMOGLOBIN. 14.2 g/dL (12.0-16.0); MEAN CORPUSCULAR HEMOGLOBIN 29.6 pg (28.0-32.0); MEAN CORPUSCULAR VOLUME 88.4 fL (81.0-99.0); RED BLOOD CELL COUNT 4.81 mill/uL (4.2-5.4); RED CELL DISTRIBUTION WIDTH 13.2 % (11.6-14.6)
[2021-06-13 08:45] LABS: CHLORIDE 111 mEq/L (98-107)
[2021-06-13 09:46] LABS: PLATELET ESTIMATE NORMAL
[2021-06-13 09:48] LABS: PLATELET 210 x1000/uL (130-400)
[2021-06-13] MEDS ORDERED: CYCL10TA7 MT (11:06)
[2021-06-13] MEDS ORDERED: IBUP-2029 MT (11:06)
== END 2021-06-13 11:36 | disposition home or self-care (01) ==
LOC: ER 07:19
DX: R10.11 Right upper quadrant pain (principal); E78.00 Pure hypercholesterolemia, unspecified; I10 Essential (primary) hypertension; E11.9 Type 2 diabetes mellitus without complications; Z98.890 Other specified postprocedural states
CPT/HCPCS: 36415; 76705; 80053; 82962; 83690; 85025; 93005; 96361; 96374; 96375; 99285; J1885; J2405; J7030; Z7610

== ENCOUNTER 2021-09-25 07:13 | Emergency (ER) | payer MEDICAID ==
[~2021-09-25] VITALS: Ht 165.1 cm; Wt 88.0 kg
[~2021-09-25 07:13] MED LIST changes: +CYCL10TA21 MT; +IBUP-2029 MT
[2021-09-25 08:15] VITALS: BP 155/89
[2021-09-25] MEDS ORDERED: SODIUM CHLORIDE 0.9% 1,000 ML IV ONE (08:15)
[2021-09-25] MEDS ORDERED: METOCLOPRAMIDE HCL 10MG/2ML VIAL IV ONE (08:15)
[2021-09-25] MEDS ORDERED: KETOROLAC 30MG/ML VIAL IV STA (08:15)
[2021-09-25] MEDS ORDERED: MAGNESIUM/ALUMINUM HYDROXIDE/SIMETHICONE 30ML UDC PO STA (08:15)
[2021-09-25 09:31] LABS: BASOPHILS % 0.7 % (0.0-2.0); EOSINOPHILS % 0.1 % (0.0-5.0); HEMATOCRIT. 40.1 % (36.0-48.0); HEMOGLOBIN. 13.2 g/dL (12.0-16.0); LYMPHOCYTES % 7.4 % (20.0-50.0); MEAN CORPUSCULAR HEMOGLOBIN 29.7 pg (28.0-32.0); MEAN CORPUSCULAR VOLUME 89.9 fL (81.0-99.0); MONOCYTES % 2.6 % (2.0-8.0); NEUTROPHILS % 89.2 % (40.0-76.0); PLATELET 249 x1000/uL (130-400); RED BLOOD CELL COUNT 4.46 mill/uL (4.2-5.4); RED CELL DISTRIBUTION WIDTH 13.5 % (11.6-14.6)
[2021-09-25 09:39] LABS: CHLORIDE 105 mEq/L (98-107)
[2021-09-25 09:43] LABS: HCG SCREEN NEGATIVE
[2021-09-25] MEDS ORDERED: HALOPERIDOL LACTATE 5MG/ML VIAL IM ONE (09:45)
[2021-09-25] MEDS ORDERED: DIPHENHYDRAMINE 50MG/ML VIAL IV ONE (09:45)
[2021-09-25 10:24] LABS: CLARITY URINE CLOUDY (CLEAR); COLOR URINE YELLOW (YELLOW); KETONES URINE TRACE (NEGATIVE); LEUKOCYTE ESTERASE URINE NEGATIVE (NEGATIVE); NITRITE URINE NEGATIVE (NEGATIVE); OCCULT BLOOD URINE NEGATIVE (NEGATIVE); PROTEIN URINE TRACE (NEGATIVE); SPECIFIC GRAVITY URINE 1.023 (1.005-1.030); UROBILINOGEN URINE 0.2 E.U./dL (0.2-1.0)
[2021-09-25] MEDS ORDERED: METO5TAB86 MT (11:01)
== END 2021-09-25 11:15 | disposition home or self-care (01) ==
LOC: ER 07:13
DX: E11.43 Type 2 diabetes mellitus with diabetic autonomic (poly)neuropathy (principal); K31.84 Gastroparesis; I10 Essential (primary) hypertension; Z79.84 Long term (current) use of oral hypoglycemic drugs; Z79.899 Other long term (current) drug therapy
CPT/HCPCS: 36415; 80053; 81003; 82962; 84703; 85025; 96361; 96372; 96374; 96375; 99284; J1200; J1630; J1885; J2765; J7030

== ENCOUNTER 2021-12-01 05:09 | Emergency (ER) | payer MEDICAID ==
[~2021-12-01] VITALS: Ht 165.1 cm; Wt 87.0 kg
[~2021-12-01 05:09] MED LIST changes: +METO5TAB86 MT
[2021-12-01 05:13] VITALS: BP 122/76
== END 2021-12-01 07:41 | disposition left against medical advice (07) ==
LOC: ER 05:09
DX: Z53.21 Procedure and treatment not carried out due to patient leaving prior to being seen by health care provider (principal)
CPT/HCPCS: 82962

== ENCOUNTER 2022-03-29 06:04 | Emergency (ER) | payer MEDICAID ==
[~2022-03-29] VITALS: Ht 165.1 cm; Wt 84.0 kg
[2022-03-29 06:10] VITALS: BP 125/75
[2022-03-29] MEDS ORDERED: MAGNESIUM/ALUMINUM HYDROXIDE/SIMETHICONE 30ML UDC PO STA (10:21)
[2022-03-29] MEDS ORDERED: VISCOUS LIDOCAINE 2% 15 ML UDC PO STA (10:21)
[2022-03-29] MEDS ORDERED: METOCLOPRAMIDE HCL 10MG/2ML VIAL IV STA (10:21)
[2022-03-29] MEDS ORDERED: SODIUM CHLORIDE 0.9% 1,000 ML IV ONE (10:30)
== END 2022-03-29 11:25 | disposition home or self-care (01) ==
LOC: ER 06:04
DX: Z53.21 Procedure and treatment not carried out due to patient leaving prior to being seen by health care provider (principal); R10.9 Unspecified abdominal pain; R11.2 Nausea with vomiting, unspecified
CPT/HCPCS: 93005; J7030

== ENCOUNTER 2022-12-14 09:31 | Emergency (ER) | payer MEDICAID ==
[~2022-12-14] VITALS: Ht 165.1 cm; Wt 75.0 kg
[2022-12-14 09:36] VITALS: O2SAT 97
[2022-12-14] MEDS ORDERED: ACETAMINOPHEN 325MG TABLET PO STA (09:57)
[2022-12-14] MEDS ORDERED: TOPUD MT (11:12)
[2022-12-14 12:12] VITALS: BP 145/87; PULSE 97; RESP 16; TEMP 99.3
== END 2022-12-14 12:13 | disposition home or self-care (01) ==
LOC: ER 09:43
DX: R51.9 Headache, unspecified (principal); I10 Essential (primary) hypertension; Z79.899 Other long term (current) drug therapy; Z98.890 Other specified postprocedural states
CPT/HCPCS: 99284

== ENCOUNTER 2022-12-27 06:45 | Emergency (ER) | payer MEDICAID ==
[~2022-12-27] VITALS: Ht 165.1 cm; Wt 75.0 kg
[~2022-12-27 06:45] MED LIST changes: +TOPUD MT
[2022-12-27 06:51] VITALS: O2SAT 98
[2022-12-27 07:31] LABS: BASOPHILS % 0.7 % (0.0-2.0); EOSINOPHILS % 0.2 % (0.0-5.0); HEMATOCRIT. 44.3 % (36.0-48.0); HEMOGLOBIN. 15.2 g/dL (12.0-16.0); LYMPHOCYTES % 16.8 % (20.0-50.0); MEAN CORPUSCULAR HEMOGLOBIN 29.9 pg (28.0-32.0); MEAN CORPUSCULAR HGB CONC 34.4 g/dL (31.0-37.0); MEAN PLATELET VOLUME 8.4 fl (7.4-10.4); MONOCYTES % 5.7 % (2.0-8.0); NEUTROPHILS % 76.6 % (40.0-76.0); PLATELET 307 x1000/uL (130-400); RED BLOOD CELL COUNT 5.09 mill/uL (4.2-5.4); RED CELL DISTRIBUTION WIDTH 13.1 % (11.6-14.6); WHITE BLOOD COUNT 9.4 x1000/uL (4.5-11.0)
[2022-12-27 07:40] LABS: CHLORIDE 97 mEq/L (98-107); INDEX HEMOLYSI 1 (1-3); INDEX ICTERIC 1 (1-4); INDEX LIPEMIC 1 (1-3); SODIUM 136 mEq/L (136-145)
[2022-12-27 07:50] LABS: CLARITY URINE CLEAR (CLEAR); COLOR URINE YELLOW (YELLOW); GLUCOSE URINE NEGATIVE (NEGATIVE); KETONES URINE TRACE (NEGATIVE); LEUKOCYTE ESTERASE URINE NEGATIVE (NEGATIVE); NITRITE URINE NEGATIVE (NEGATIVE); OCCULT BLOOD URINE NEGATIVE (NEGATIVE); PROTEIN URINE NEGATIVE (NEGATIVE); SPECIFIC GRAVITY URINE 1.023 (1.005-1.030)
[2022-12-27 07:52] LABS: ALANINE AMINOTRANSFERASE 21 IU/L (13-61); ALBUMIN 3.6 g/dL (3.4-5.0); ASPARTATE AMINOTRANSFERASE 16 IU/L (15-37); BILIRUBIN TOTAL 0.8 mg/dL (0.1-1.0); CALCIUM 8.9 mg/dL (8.5-10.1); CARBON DIOXIDE 33 mEq/L (21-32); CREATININE 0.8 mg/dL (0.6-1.3); GLUCOSE 121 mg/dL (70-105); PROTEIN TOTAL 8.2 g/dL (6.0-8.3); TROPONIN I HIGH SENSITIVITY 8 ng/L (<54); UREA NITROGEN BLOOD 12 mg/dL (7-21)
[2022-12-27 08:01] LABS: HCG SCREEN NEGATIVE
[2022-12-27] MEDS ORDERED: FAMOTIDINE 20MG/2ML VIAL IV NR (08:15)
[2022-12-27] MEDS ORDERED: SODIUM CHLORIDE 0.9% 1,000 ML IV NR (08:15)
[2022-12-27] MEDS ORDERED: METOCLOPRAMIDE HCL 10MG/2ML VIAL IV NR (08:16)
[2022-12-27 08:34] LABS: POTASSIUM 2.6 mEq/L (3.5-5.1)
[2022-12-27] MEDS ORDERED: POTASSIUM CHLORIDE INJ 40 MEQ in DEXT 5% WATER 500 ML IV NR (09:10)
[2022-12-27] MEDS ORDERED: POTASSIUM CHLORIDE 20MEQ TABLET SR PO NR (10:30)
[2022-12-27 11:05] VITALS: BP 106/62; PULSE 67; RESP 17; TEMP 98.1
== END 2022-12-27 11:10 | disposition home or self-care (01) ==
LOC: ER 06:45
DX: R10.12 Left upper quadrant pain (principal); R11.2 Nausea with vomiting, unspecified; I10 Essential (primary) hypertension; Z90.710 Acquired absence of both cervix and uterus; Z98.890 Other specified postprocedural states
CPT/HCPCS: 80053; 81003; 84703; 83690; 85025; 84484; 36415; 93005; 96361; 96374; 96375; 99284; J3490; J2765; J3480; J7060; Z7610 ×2

== ENCOUNTER 2023-02-15 10:04 | Emergency (ER) | payer MEDICAID ==
[~2023-02-15] VITALS: Ht 167.6 cm; Wt 75.0 kg
[2023-02-15 10:22] VITALS: O2SAT 98
[2023-02-15] MEDS ORDERED: FLUORESCEIN SODIUM 1MG/STRIP LEFTEYE ONE (11:30)
[2023-02-15] MEDS ORDERED: FLUORESCEIN SODIUM 1MG/STRIP LEFTEYE NR (14:45)
[2023-02-15] MEDS ORDERED: KETO5DRO73 EACHEYE (14:59)
[2023-02-15 15:30] VITALS: BP 137/80; PULSE 87; RESP 18; TEMP 98.2
== END 2023-02-15 15:31 | disposition home or self-care (01) ==
LOC: ER 10:16
DX: H53.142 Visual discomfort, left eye (principal); I10 Essential (primary) hypertension; E78.00 Pure hypercholesterolemia, unspecified; Z98.890 Other specified postprocedural states
CPT/HCPCS: 99283

== ENCOUNTER 2023-08-15 08:18 | Emergency (ER) | payer MEDICAID ==
[~2023-08-15] VITALS: Ht 167.6 cm; Wt 85.0 kg
[~2023-08-15 08:18] MED LIST changes: +KETO5DRO73 EACHEYE
[2023-08-15 08:27] VITALS: O2SAT 99
[2023-08-15 09:17] LABS: BASOPHILS % 0.4 % (0.0-2.0); EOSINOPHILS % 0.1 % (0.0-5.0); HEMATOCRIT. 43.7 % (36.0-48.0); HEMOGLOBIN. 13.8 g/dL (12.0-16.0); LYMPHOCYTES % 13.2 % (20.0-50.0); MEAN CORPUSCULAR HEMOGLOBIN 28.9 pg (28.0-32.0); MEAN CORPUSCULAR HGB CONC 31.5 g/dL (31.0-37.0); MEAN CORPUSCULAR VOLUME 91.5 fL (81.0-99.0); MEAN PLATELET VOLUME 8.9 fl (7.4-10.4); MONOCYTES % 3.5 % (2.0-8.0); NEUTROPHILS % 82.8 % (40.0-76.0); PLATELET 236 x1000/uL (130-400); RED BLOOD CELL COUNT 4.77 mill/uL (4.2-5.4); RED CELL DISTRIBUTION WIDTH 13.1 % (11.6-14.6); WHITE BLOOD COUNT 12.5 x1000/uL (4.5-11.0)
[2023-08-15 09:28] LABS: CHLORIDE 110 mEq/L (98-107); POTASSIUM 3.6 mEq/L (3.5-5.1); SODIUM 140 mEq/L (136-145)
[2023-08-15 09:29] LABS: CARBON DIOXIDE 22 mEq/L (21-32)
[2023-08-15 09:34] LABS: CREATININE 0.8 mg/dL (0.6-1.0); GLUCOSE 185 mg/dL (70-105)
[2023-08-15 09:36] LABS: ALANINE AMINOTRANSFERASE 13 IU/L (10-49); ALBUMIN 4.3 g/dL (3.2-4.8); ASPARTATE AMINOTRANSFERASE 17 IU/L (<34)
[2023-08-15 09:37] LABS: BILIRUBIN DIRECT 0.1 mg/dL (<=3.0); BILIRUBIN TOTAL 0.4 mg/dL (0.1-1.0); PROTEIN TOTAL 7.1 g/dL (6.0-8.3)
[2023-08-15 09:57] LABS: UREA NITROGEN BLOOD 8 mg/dL (9-23)
[2023-08-15] MEDS: PANTOPRAZOLE SODIUM 40 MG/VIAL IV ONE (10:46)
[2023-08-15] MEDS: METOCLOPRAMIDE HCL 10MG/2ML VIAL IV ONE (10:46)
[2023-08-15] MEDS: SODIUM CHLORIDE 0.9% 1,000 ML IV ONE (10:47)
[2023-08-15] MEDS: HALOPERIDOL LACTATE 5MG/ML VIAL IM ONE (12:00)
[2023-08-15] MEDS: DIPHENHYDRAMINE 50MG/ML VIAL IV ONE (12:00)
[2023-08-15 13:26] LABS: CLARITY URINE CLEAR (CLEAR); COLOR URINE YELLOW (YELLOW); GLUCOSE URINE 3+ (NEGATIVE); KETONES URINE 2+ (NEGATIVE); LEUKOCYTE ESTERASE URINE NEGATIVE (NEGATIVE); NITRITE URINE NEGATIVE (NEGATIVE); OCCULT BLOOD URINE NEGATIVE (NEGATIVE); PH URINE 7.5 (4.5-8.0); PROTEIN URINE TRACE (NEGATIVE); SPECIFIC GRAVITY URINE 1.025 (1.005-1.030); UROBILINOGEN URINE 0.2 E.U./dL (0.2-1.0)
[2023-08-15 13:33] LABS: *AMPHETAMINES SCREEN URINE NEGATIVE (NEGATIVE); *BARBITURATES SCREEN URINE NEGATIVE (NEGATIVE); *BENZODIAZEPINES SCREEN URINE NEGATIVE (NEGATIVE); METHADONE URINE SCREEN NEGATIVE (NEGATIVE); OPIATES URINE SCREEN NEGATIVE (NEGATIVE)
[2023-08-15 13:34] LABS: CANNABINOID URINE SCREEN PRESUMPTIVE POSITIVE (NEGATIVE); ECSTASY MDMA SCREEN URINE NEGATIVE (NEGATIVE); PHENCYCLIDINE URINE SCREEN NEGATIVE (NEGATIVE)
[2023-08-15 13:49] LABS: *COCAINE SCREEN URINE NEGATIVE (NEGATIVE)
[2023-08-15 14:11] LABS: BACTERIA URINE 1+; RBC URINE NONE SEEN /hpf (0-2); SQUAMOUS EPITHELIAL CELL URINE 2+ /lpf (RARE/1+); WBC URINE 0-2 /hpf (0-2)
[2023-08-15 14:30] VITALS: BP 132/74; PULSE 61; RESP 15; TEMP 98.2
[2023-08-15 15:49] LABS: HCG SCREEN NEGATIVE
== END 2023-08-15 18:00 | disposition home or self-care (01) ==
LOC: ER 08:18
DX: E11.43 Type 2 diabetes mellitus with diabetic autonomic (poly)neuropathy (principal); K31.84 Gastroparesis; I10 Essential (primary) hypertension; E78.00 Pure hypercholesterolemia, unspecified; Z79.899 Other long term (current) drug therapy; Z98.890 Other specified postprocedural states
CPT/HCPCS: 99285; 96365; 96366; 96375; 71045; 80076; 80305; 80048; 82962; 84703; 83690; 85025; 36415; 93005; 81003; 96372; J1200; J1630; J2765; C9113; J7030

== ENCOUNTER 2023-08-30 15:50 | Emergency (ER) | payer MEDICAID, OTHER ==
[~2023-08-30] VITALS: Ht 165.1 cm; Wt 79.4 kg
[2023-08-30 16:13] VITALS: O2SAT 97
[2023-08-30] MEDS ORDERED: KETOROLAC 15MG/ML VIAL IM ONE (18:15)
[2023-08-30] MEDS: KETOROLAC 30MG/ML VIAL IM NR (20:09)
[2023-08-30 20:13] LABS: CLARITY URINE CLEAR (CLEAR); COLOR URINE DARK YELLOW (YELLOW); GLUCOSE URINE NEGATIVE (NEGATIVE); KETONES URINE TRACE (NEGATIVE); LEUKOCYTE ESTERASE URINE NEGATIVE (NEGATIVE); NITRITE URINE NEGATIVE (NEGATIVE); OCCULT BLOOD URINE NEGATIVE (NEGATIVE); PROTEIN URINE NEGATIVE (NEGATIVE)
[2023-08-30 20:31] VITALS: BP 130/68; PULSE 72; RESP 18; TEMP 97
== END 2023-08-30 20:33 | disposition home or self-care (01) ==
LOC: ER 15:50
DX: R10.9 Unspecified abdominal pain (principal); I10 Essential (primary) hypertension; E11.9 Type 2 diabetes mellitus without complications; E78.00 Pure hypercholesterolemia, unspecified; Z79.899 Other long term (current) drug therapy; Z98.890 Other specified postprocedural states
CPT/HCPCS: 99284; 81003; 81025; 71101; 96372; J1885

== ENCOUNTER 2023-10-25 12:52 | Emergency (ER) | payer OTHER ==
[~2023-10-25] VITALS: Ht 165.1 cm; Wt 79.0 kg
[2023-10-25 13:54] VITALS: O2SAT 99
[2023-10-25] MEDS ORDERED: P50 MT (16:01)
[2023-10-25] MEDS ORDERED: ACET325T52 MT (16:01)
[2023-10-25] MEDS ORDERED: AMOX1TAB16 MT (16:01)
[2023-10-25 16:48] VITALS: BP 107/69; PULSE 62; RESP 17; TEMP 36.72516; O2SAT 100
== END 2023-10-25 16:49 | disposition home or self-care (01) ==
LOC: ER 12:52
DX: H69.91 Unspecified Eustachian tube disorder, right ear (principal); I10 Essential (primary) hypertension; E78.00 Pure hypercholesterolemia, unspecified; E11.9 Type 2 diabetes mellitus without complications; Z90.710 Acquired absence of both cervix and uterus; Z79.899 Other long term (current) drug therapy; Z98.890 Other specified postprocedural states
CPT/HCPCS: 99283

== ENCOUNTER 2023-11-19 08:25 | Emergency (ER) | payer SELFPAY ==
[~2023-11-19] VITALS: Ht 165.1 cm; Wt 79.0 kg
[~2023-11-19 08:25] MED LIST changes: +ACET325T52 MT; +AMOX1TAB16 MT; +P50 MT
[2023-11-19 08:27] VITALS: O2SAT 99
[2023-11-19 08:31] VITALS: BP 117/80; PULSE 86; RESP 16; TEMP 98.7; O2SAT 98
[2023-11-19 09:37] LABS: BASOPHILS % 0.5 % (0.0-2.0); EOSINOPHILS % 0.3 % (0.0-5.0); HEMATOCRIT. 47.3 % (36.0-48.0); HEMOGLOBIN. 15.1 g/dL (12.0-16.0); LYMPHOCYTES % 15.9 % (20.0-50.0); MEAN CORPUSCULAR HEMOGLOBIN 29.3 pg (28.0-32.0); MEAN CORPUSCULAR VOLUME 91.7 fL (81.0-99.0); MEAN PLATELET VOLUME 8.6 fl (7.4-10.4); MONOCYTES % 5.5 % (2.0-8.0); NEUTROPHILS % 77.8 % (40.0-76.0); PLATELET 232 x1000/uL (130-400); RED BLOOD CELL COUNT 5.15 mill/uL (4.2-5.4); RED CELL DISTRIBUTION WIDTH 13.3 % (11.6-14.6); WHITE BLOOD COUNT 8.2 x1000/uL (4.5-11.0)
[2023-11-19 09:47] LABS: CHLORIDE 106 mEq/L (98-107); HCG SCREEN NEGATIVE; POTASSIUM 3.8 mEq/L (3.5-5.1); SODIUM 139 mEq/L (136-145)
[2023-11-19 09:50] LABS: CALCIUM 9.6 mg/dL (8.7-10.4); CARBON DIOXIDE 28 mEq/L (21-32)
[2023-11-19 09:54] LABS: CREATININE 0.9 mg/dL (0.6-1.0); GLUCOSE 106 mg/dL (70-105); UREA NITROGEN BLOOD 5 mg/dL (9-23)
[2023-11-19 09:55] LABS: ALANINE AMINOTRANSFERASE 19 IU/L (10-49); ALBUMIN 4.2 g/dL (3.2-4.8); ASPARTATE AMINOTRANSFERASE 15 IU/L (<34); BILIRUBIN DIRECT 0.1 mg/dL (<=3.0); BILIRUBIN TOTAL 0.6 mg/dL (0.1-1.0); PROTEIN TOTAL 7.2 g/dL (6.0-8.3)
[2023-11-19] MEDS ORDERED: SENN-362 MT (10:17)
[2023-11-19] MEDS ORDERED: DOCU-138 MT (10:17)
[2023-11-19] MEDS ORDERED: POLY17PO3 MT (10:17)
== END 2023-11-19 11:20 | disposition home or self-care (01) ==
LOC: ER 08:25
DX: K59.00 Constipation, unspecified (principal); Z79.899 Other long term (current) drug therapy; Z90.710 Acquired absence of both cervix and uterus; Z98.890 Other specified postprocedural states
CPT/HCPCS: 36415; 80048; 80076; 84703; 85025; 99283

== ENCOUNTER 2023-12-06 12:44 | Emergency (ER) | payer OTHER ==
[~2023-12-06] VITALS: Ht 165.1 cm; Wt 77.1 kg
[~2023-12-06 12:44] MED LIST changes: +DOCU-138 MT; +POLY17PO3 MT; +SENN-362 MT
[2023-12-06 12:48] VITALS: O2SAT 98
[2023-12-06] MEDS ORDERED: KETOROLAC 30MG/ML VIAL IM STA (16:12)
[2023-12-06] MEDS ORDERED: METOCLOPRAMIDE HCL 10MG/2ML VIAL IM ONE (16:15)
[2023-12-06 16:40] LABS: BASOPHILS % 1.5 % (0.0-2.0); EOSINOPHILS % 1.1 % (0.0-5.0); HEMATOCRIT. 42.1 % (36.0-48.0); HEMOGLOBIN. 14.4 g/dL (12.0-16.0); LYMPHOCYTES % 33.5 % (20.0-50.0); MEAN CORPUSCULAR HEMOGLOBIN 31.1 pg (28.0-32.0); MEAN CORPUSCULAR HGB CONC 34.3 g/dL (31.0-37.0); MEAN CORPUSCULAR VOLUME 90.7 fL (81.0-99.0); MONOCYTES % 6.8 % (2.0-8.0); NEUTROPHILS % 57.1 % (40.0-76.0); PLATELET 217 x1000/uL (130-400); RED BLOOD CELL COUNT 4.64 mill/uL (4.2-5.4); RED CELL DISTRIBUTION WIDTH 13.1 % (11.6-14.6); WHITE BLOOD COUNT 6.2 x1000/uL (4.5-11.0)
[2023-12-06 16:44] LABS: CLARITY URINE CLOUDY (CLEAR); COLOR URINE YELLOW (YELLOW); GLUCOSE URINE NEGATIVE (NEGATIVE); KETONES URINE NEGATIVE (NEGATIVE); LEUKOCYTE ESTERASE URINE NEGATIVE (NEGATIVE); NITRITE URINE NEGATIVE (NEGATIVE); OCCULT BLOOD URINE NEGATIVE (NEGATIVE); PH URINE 7.5 (4.5-8.0); PROTEIN URINE NEGATIVE (NEGATIVE); SPECIFIC GRAVITY URINE 1.021 (1.005-1.030)
[2023-12-06 16:45] LABS: CHLORIDE 109 mEq/L (98-107); POTASSIUM 3.7 mEq/L (3.5-5.1); SODIUM 141 mEq/L (136-145)
[2023-12-06 16:46] LABS: CARBON DIOXIDE 30 mEq/L (21-32)
[2023-12-06 16:47] LABS: CALCIUM 9.5 mg/dL (8.7-10.4)
[2023-12-06 16:51] LABS: CREATININE 0.9 mg/dL (0.6-1.0); GLUCOSE 77 mg/dL (70-105); UREA NITROGEN BLOOD 9 mg/dL (9-23)
[2023-12-06 17:10] LABS: RBC URINE 0-2 /hpf (0-2); SQUAMOUS EPITHELIAL CELL URINE 1+ /lpf (RARE/1+); WBC URINE 0-2 /hpf (0-2)
[2023-12-06 17:11] LABS: YEAST URINE NONE SEEN
[2023-12-06 17:12] LABS: BACTERIA URINE 1+
[2023-12-06] MEDS ORDERED: NAPR-681 PO (18:11)
[2023-12-06 18:15] VITALS: BP 122/74; PULSE 86; RESP 16; TEMP 36.94740; O2SAT 100
== END 2023-12-06 18:41 | disposition home or self-care (01) ==
LOC: ER 12:44
DX: H66.91 Otitis media, unspecified, right ear (principal); E11.9 Type 2 diabetes mellitus without complications; I10 Essential (primary) hypertension; Z90.710 Acquired absence of both cervix and uterus; Z98.890 Other specified postprocedural states
CPT/HCPCS: 36415; 80048; 81003; 81025; 85025; 99284

== ENCOUNTER 2024-02-14 14:19 | Emergency (ER) | payer SELFPAY ==
[~2024-02-14] VITALS: Ht 165.1 cm; Wt 85.0 kg
[~2024-02-14 14:19] MED LIST changes: +ACET-3800 MT; -ACET325T52 MT; +NAPR-681 PO
[2024-02-14 14:29] VITALS: O2SAT 100
[2024-02-14 14:52] VITALS: BP 149/69; PULSE 78; RESP 18; TEMP 98.5; O2SAT 99
[2024-02-14] MEDS ORDERED: IBUP-2030 MT (16:24)
== END 2024-02-14 16:29 | disposition home or self-care (01) ==
LOC: ER 14:19
DX: S20.219A Contusion of unspecified front wall of thorax, initial encounter (principal); I10 Essential (primary) hypertension; Z90.710 Acquired absence of both cervix and uterus; Z79.84 Long term (current) use of oral hypoglycemic drugs; Z79.899 Other long term (current) drug therapy; X58.XXXA Exposure to other specified factors, initial encounter; Y93.89 Activity, other specified; Y92.89 Other specified places as the place of occurrence of the external cause; Y99.8 Other external cause status
CPT/HCPCS: 71045; 99283

== ENCOUNTER 2025-01-03 09:40 | Emergency (ER) | payer OTHER ==
[~2025-01-03] VITALS: Ht 170.2 cm; Wt 68.0 kg
[~2025-01-03 09:40] MED LIST changes: +IBUP-1455 MT; -IBUP-2029 MT; +IBUP-2030 MT
[2025-01-03 09:41] VITALS: O2SAT 98
[2025-01-03] MEDS: MORPHINE SULFATE 4 MG/ML INJ (FOR IV/IM USE) IV ONE ×2 (10:00→13:10)
[2025-01-03] MEDS: ONDANSETRON HCL 4MG/2ML INJ IV ONE ×2 (10:29→13:25)
[2025-01-03 11:10] LABS: BASOPHILS % 0.8 % (0.0-2.0); EOSINOPHILS % 0.3 % (0.0-5.0); HEMATOCRIT. 40.5 % (36.0-48.0); HEMOGLOBIN. 13.2 g/dL (12.0-16.0); LYMPHOCYTES % 16.4 % (20.0-50.0); MEAN PLATELET VOLUME 9.8 fl (7.4-10.4); MONOCYTES % 3.3 % (2.0-8.0); NEUTROPHILS % 79.2 % (40.0-76.0); PLATELET 221 x1000/uL (130-400); RED BLOOD CELL COUNT 4.49 mill/uL (4.2-5.4); RED CELL DISTRIBUTION WIDTH 12.9 % (11.6-14.6)
[2025-01-03 11:25] LABS: CREATININE 0.8 mg/dL (0.6-1.0); UREA NITROGEN BLOOD 9 mg/dL (9-23)
[2025-01-03 11:26] LABS: TROPONIN I HIGH SENSITIVITY < 4 ng/L (3.0-34)
[2025-01-03] MEDS ORDERED: ONDANSETRON HCL 4MG/2ML INJ IV SCH (13:45)
[2025-01-03] MEDS ORDERED: ACETAMINOPHEN 325MG TABLET PO PRN (13:45)
[2025-01-03] MEDS ORDERED: DEXTROSE 50% WATER 50ML SYRINGE IV PRN (13:45)
[2025-01-03] MEDS ORDERED: GUAIFENESIN 200MG/10ML SUGAR FREE UDC PO PRN (13:45)
[2025-01-03] MEDS ORDERED: IPRATROPIUM/ALBUTEROL 0.5-3(2.5)MG/3ML NEB HHN PRN (13:45)
[2025-01-03] MEDS ORDERED: DOCUSATE SODIUM 100MG CAPSULE PO PRN (13:45)
[2025-01-03] MEDS ORDERED: ENOXAPARIN 40MG/0.4ML SYR SUBCUT SCH (14:00)
[2025-01-03] MEDS ORDERED: HYDRALAZINE 20MG/ML VIAL IV PRN (14:45)
[2025-01-03] MEDS ORDERED: NITROGLYCERIN 0.4MG TABLET SL SL PRN (14:45)
[2025-01-03] MEDS ORDERED: PANTOPRAZOLE SODIUM 40 MG/VIAL IV SCH (15:00)
[2025-01-03 15:10] VITALS: BP 166/82; PULSE 66; RESP 16; TEMP 37.1; O2SAT 100
[2025-01-03] MEDS ORDERED: AMLODIPINE 5MG TABLET PO SCH (15:30)
[2025-01-03 15:51] LABS: TRIGLYCERIDE 85.0 mg/dL (0-150)
[2025-01-03 15:52] LABS: LDL CHOLESTEROL 161.0 mg/dL (5-100)
[2025-01-03 15:55] LABS: T4 FREE 1.0 ng/dL (0.89-1.76)
[2025-01-03] MEDS ORDERED: AMLODIPINE 10MG TABLET PO SCH (16:00)
[2025-01-03] MEDS ORDERED: INSULIN LISPRO 100 UNITS/ML SUBCUT SCH (18:20)
[2025-01-03] MEDS ORDERED: ATORVASTATIN CALCIUM 40MG TABLET PO SCH (21:00)
== END 2025-01-03 15:11 | disposition short-term general hospital (02) ==
LOC: ER 09:45 → CMPBEDREQ 01-05 07:54
DX: R07.2 Precordial pain (principal); I10 Essential (primary) hypertension; R06.02 Shortness of breath; E11.9 Type 2 diabetes mellitus without complications; Z79.899 Other long term (current) drug therapy; Z90.710 Acquired absence of both cervix and uterus
CPT/HCPCS: 80061; 80048; 82550; 83036; 83880; 84439; 83690; 84443; 85025; 84484; 36415; 71045; 93005; 96374; 96375; 96376; 99285; J2405; J2270; Z7610 ×2; A4606